=== PATIENT | female | born 1985 | race Caucasian/White ===

== ENCOUNTER 2025-02-08 13:53 | Emergency (ER) | payer OTHER ==
[~2025-02-08] VITALS: Ht 172.7 cm; Wt 69.0 kg
[2025-02-08 14:13] VITALS: O2SAT 100
[2025-02-08 14:15] VITALS: BP 128/88; PULSE 87; RESP 18; TEMP 36.7; O2SAT 100
== END 2025-02-08 19:17 | disposition left against medical advice (07) ==
LOC: ER 14:02
DX: Z00.8 Encounter for other general examination (principal); M54.30 Sciatica, unspecified side; Z76.0 Encounter for issue of repeat prescription
CPT/HCPCS: 99281